=== PATIENT | female | born 1990 | race Two or more races ===

== ENCOUNTER 2024-01-09 10:07 | Emergency (ER) | payer MEDICAID, SELFPAY ==
[2024-01-09 10:13] VITALS: BP 129/83; PULSE 106; RESP 18; TEMP 36.6; O2SAT 98; BMI 36.3
--- NOTE | 2024-01-09 10:20 | PD.EDHIP ---
Lower Extremity Injury RME/HPI General Chief Complaint: Hip Injury/Pain Stated Complaint: RIGHT HIP PAIN Source: patient Arrival date/time: 01/09/24 10:07 33-year-old female with past medical history of right hip labral tears presents emergency department complaining of right hip pain this morning. Patient reports pain is worse than normal and thinks he might be due to cold weather. Patient denies any fever, chills, nausea vomiting, flank pain, hematuria, dysuria, bowel or bladder dysfunction, or any other associated symptom. Mode of arrival: ambulatory Limitations: no limitations Related Data Previous Rx's ?Medication ?Instructions ?Recorded ibuprofen 800 mg tablet 800 mg PO TID PRN pain #30 tabs 11/14/18 cyclobenzaprine 10 mg tablet 10 mg PO TID PRN muscle spasm #30 05/16/20 tabs hydrocodone 5 mg-acetaminophen 325 1 tab PO BID PRN pain #10 tabs 05/16/20 mg tablet ibuprofen 800 mg tablet 800 mg PO TID PRN pain #30 tabs 05/16/20 docusate sodium 50 mg capsule 50 mg PO BID PRN constipation #30 10/01/20 (Colace Clear) caps ibuprofen 600 mg tablet 600 mg PO TID PRN pain #30 tabs 10/03/21 albuterol sulfate 90 mcg/actuation 1 inh inhalation QID PRN shortness 05/27/22 aerosol inhaler of breath or wheezing #8.5 grams fluticasone propionate 50 1 spray intranasal QDAY #16 grams 05/27/22 mcg/actuation nasal spray,suspension (Flonase Allergy Relief) prednisone 20 mg tablet See Taper PO QDAY #15 tabs 05/27/22 acetaminophen 500 mg tablet 500 mg PO Q6H PRN fever or pain 07/16/23 (Tylenol Extra Strength) #60 tabs ibuprofen 600 mg tablet 600 mg PO Q6H PRN fever or pain 07/16/23 #30 tabs cyclobenzaprine 10 mg tablet 10 mg PO TID PRN muscle spasm #10 01/09/24 tabs ibuprofen 600 mg tablet 600 mg PO Q8H PRN pain #20 tabs 01/09/24 Allergies Allergy/AdvReac Type Severity Reaction Status Date / Time clindamycin Allergy Severe LIPS SWELL Verified 07/16/23 18:14 Review of Systems Review of Systems Systems Reviewed: All systems reviewed, normal except as documented Constitutional Constitutional: Reports system reviewed and no additional complaints, except as documented, Denies body ache(s), Denies chills and Denies fever(s) Eyes Eyes: Reports system reviewed and no additional complaints, except as documented and Denies change in vision ENT Ears, Nose, Mouth, and Throat: Reports system reviewed and no additional complaints, except as documented, Denies disequilibrium, Denies dizziness, Denies sore throat and Denies vertigo Cardiovascular Cardiovascular: Reports system reviewed and no additional complaints, except as documented, Denies chest pain and Denies dyspnea Respiratory Respiratory: Reports system reviewed and no additional complaints, except as documented, Denies chest congestion, Denies cough and Denies dyspnea Gastrointestinal Gastrointestinal: Reports system reviewed and no additional complaints, except as documented, Denies abdominal pain, Denies nausea and Denies vomiting Musculoskeletal Musculoskeletal: Reports system reviewed and no additional complaints, except as documented, Denies abnormal gait and Reports arthralgias Integumentary/Breasts Skin/Breast: Reports system reviewed and no additional complaints, except as documented, Denies erythema, Denies rash and Denies wounds Neurologic Neurologic: Reports system reviewed and no additional complaints, except as documented, Denies abnormal gait, Denies disequilibrium, Denies dizziness and Denies vertigo Past Medical History Past Medical History NEUROLOGIC: Positive Peripheral Neuropathy CARDIAC: Positive Hypertension; Negative Congestive Heart Failure RESPIRATORY: Negative Chronic Obstructive Pulmonary Disease (COPD) GASTROINTESTINAL: Positive Irritable Bowel GENITOURINARY: Negative Renal Disease ENDOCRINE: Negative Diabetes Mellitus Type 1 or Diabetes Mellitus Type 2 Surgical History SURGICAL: Positive Section (x3) Social History SMOKING STATUS: Light (< 1 pack/day) SUBSTANCE USE: does not use ED Exam General Limitations: Present no limitations General appearance: Present alert and in no apparent distress Head Head exam: Present atraumatic Eye Eye exam: Present normal appearance, PERRL and EOMI ENT ENT exam: Present normal exam, normal oropharynx and mucous membranes moist Neck Neck exam: Present normal inspection, full ROM and trachea midline Chest Chest inspection: Present normal inspection and symmetric chest wall rise Respiratory Respiratory exam: Present normal lung sounds bilaterally Cardiovascular Cardiovascular exam: Present regular rate, normal rhythm and normal heart sounds Abdominal Exam Abdominal exam: Present soft and normal bowel sounds Extremities Exam Extremities exam: Present normal inspection and full ROM Expanded Lower Extremity Exam Hip/Pelvis exam: Present full ROM and tenderness (Right hip); Absent swelling or deformity Gait: observed and normal Back Exam Back exam: Present normal inspection and full ROM Neurological Exam Neurological exam: Present alert, oriented X3 and CN II-XII intact Psychiatric Psychiatric exam: Present normal affect and normal mood Skin Skin exam: Present warm, dry, intact and normal color Course Quality Measures none Orders Category Date Time Status Diazepam [Valium] Med 01/09/24 10:21 Discontinued 5 mg PO X1 ONE Ketorolac Inj [Toradol Inj] Med 01/09/24 10:21 Discontinued 30 mg IM X1 ONE Vital Signs Vital signs: Vital Signs Temperature 97.9 F 01/09/24 10:13 Pulse Rate 106 H 01/09/24 10:13 Respiratory Rate 18 01/09/24 10:13 Blood Pressure 129/83 01/09/24 10:13 Pulse Oximetry (%) 98 01/09/24 10:13 Oxygen Delivery Method Room Air 01/09/24 10:13 98% room air within normal limits Extremity Injury, Lower MDM Narrative MDM Narrative:: 33-year-old female with past medical history of right hip labral tears presents emergency department complaining of right hip pain this morning. Patient reports pain is worse than normal and thinks he might be due to cold weather. Patient denies any fever, chills, nausea vomiting, flank pain, hematuria, dysuria, bowel or bladder dysfunction, or any other associated symptom. Patient reports has pending visit with email deployment specialist in [place] for labrum tears of right hip. Patient appears nontoxic and hemodynamically stable. Patient GCS of 15 ambulating independently with steady gait. Patient discharged home and instructed to follow-up with primary care provider and email deployment specialist as reported. Instructed to return to emergency department for any worsening symptoms or as needed. Patient data External records reviewed:: [facility] previous records Clinical information provided by:: patient Social determinants that could affect healthcare access:: none Patient has the following chronic illnesses:: See chart How is presenting disease/condition affected by chronic disease/condition?: exacerbated by Evaluation data The following diagnostics were reviewed and interpreted by me:: other (specify) (N/A) Lab and/or radiology exams considered but not ordered:: n/a Interpretation Summary: n/a Medications / Prescriptions Medications or Prescriptions considered but not ordered:: Ordered Medication administrations:: Medication Administration History Discontinued Medications Diazepam (Diazepam 5 Mg Tablet) 5 mg PO X1 ONE Stop: 01/09/24 10:22 Ketorolac Tromethamine (Ketorolac Inj 60 Mg/2 Ml Vial) 30 mg IM X1 ONE Stop: 01/09/24 10:22 Given Consultations Consultation(s) initiated? (list below): No Diagnosis Most likely diagnosis given after review of the tests above:: Hip pain Right hip labral tear Admission Indicated Admission indicated?: not indicated Admission Request Was there a request for admission?: No Disposition Plan Disposition Plan: Discharge Discharge Attestation Discharge Attestation: The patient and all family members were given an opportunity to ask questions and understood the discharge instructions. Discharge instructions specifically effects, indications for sooner follow up or return to the emergency department, and the expected course of current diagnosis. Patient condition: Stable Discharge Plan Plan Patient Disposition: HOME (Self Care) Disposition Comment: Stable Prescriptions/Referrals Prescriptions/Med Rec: New cyclobenzaprine 10 mg tablet 10 mg PO TID PRN (Reason: muscle spasm) Qty: 10 0RF ibuprofen 600 mg tablet 600 mg PO Q8H PRN (Reason: pain) Qty: 20 0RF No Action ibuprofen 800 mg tablet 800 mg PO TID PRN (Reason: pain) Qty: 30 0RF cyclobenzaprine 10 mg tablet 10 mg PO TID PRN (Reason: muscle spasm) Qty: 30 0RF ibuprofen 800 mg tablet 800 mg PO TID PRN (Reason: pain) Qty: 30 0RF hydrocodone-acetaminophen 5-325 mg tablet 1 tab PO BID MDD 10 PRN (Reason: pain) Qty: 10 0RF Colace Clear 50 mg capsule 50 mg PO BID PRN (Reason: constipation ) Qty: 30 0RF ibuprofen 600 mg tablet 600 mg PO TID PRN (Reason: pain) Qty: 30 0RF albuterol sulfate 90 mcg/actuation HFA aerosol inhaler 1 inh inhalation QID PRN (Reason: shortness of breath or wheezing) Qty: 8.5 0RF prednisone 20 mg tablet See Taper PO QDAY Qty: 15 0RF Taper: Prednisone Taper 60 mg DAILY for 5 Days and 0 Hour fluticasone propionate [Flonase Allergy Relief] 50 mcg/actuation spray,suspension 1 spray intranasal QDAY Qty: 16 0RF Rx Instructions: administer into each nostril ibuprofen 600 mg tablet 600 mg PO Q6H PRN (Reason: fever or pain) Qty: 30 0RF acetaminophen [Tylenol Extra Strength] 500 mg tablet 500 mg PO Q6H PRN (Reason: fever or pain) Qty: 60 0RF Problem List Clinical Impression: Hip pain, right, Labral tear of right hip joint Patient/Caregiver Discharge Instructions Discharge Activity: activity as tolerated Education Materials: ED Arthralgia, ED Hip Strain Additional Instructions: Take medication as prescribed. Follow-up with primary care provider upon discharge and with orthopedist specialist in [place] as discussed. Return to the emergency department for any worsening symptoms or as needed. Print Language: Micronesian Stand Alone Forms: Elva Award Info., Patient Portal Info Letter PA/[employer] SUPERVISOR Supervising Physician PA/[employer] SUPERVISOR Supervising Physician: Dr. Rg
[2024-01-09] MEDS: DIAZEPAM 5 MG TABLET PO (10:39)
[2024-01-09] MEDS: KETOROLAC INJ 60 MG/2 ML VIAL 30 MG IM (10:39)
== END 2024-01-09 10:57 | disposition home or self-care (01) ==
PROVIDERS: Emergency Provider Emergency Medicine
DX: M25.551 Pain in right hip (principal); S73.101A Unspecified sprain of right hip, initial encounter; X58.XXXA Exposure to other specified factors, initial encounter
CPT/HCPCS: 96372; 99283; J1885; A9270